=== PATIENT | female | born 1990 | race African-American/Black ===

== ENCOUNTER 2019-02-09 14:26 | Emergency (ER) | payer OTHER ==
[~2019-02-09] VITALS: Ht 175.3 cm; Wt 90.7 kg
== END 2019-02-09 17:30 | disposition home or self-care (01) ==
LOC: ER 14:26
DX: S93.492A Sprain of other ligament of left ankle, initial encounter (principal); W01.190A Fall on same level from slipping, tripping and stumbling with subsequent striking against furniture, initial encounter; Y93.89 Activity, other specified; Y92.59 Other trade areas as the place of occurrence of the external cause; Y99.8 Other external cause status